=== PATIENT | male | born 1990 | race Caucasian/White ===

== ENCOUNTER → 2016-12-28 | Day surgery (SDC) | payer MEDICAID ==
[~2016-12-28] VITALS: Ht 189.2 cm; Wt 151.0 kg
[~2016-12-28] MED LIST: BACITRACIN ZINC 15GM TUBE TOP ONE; BUPIVACAINE HCL/PF 0.25% (2.5MG/ML) 10ML ONE; CEFAZOLIN SODIUM 1000MG/VIAL ONE; FENTANYL CITRATE/PF 50MCG/ML 2ML VIAL ONE; HYDROMORPHONE HCL/PF 2MG/ML CPJ IV PRN; LACTATED RINGERS 1,000 ML IV SCH; LIDOCAINE HCL 1% 20ML VIAL (Pyxis) INJ ONE; MEPERIDINE HCL/PF 25MG/ML CPJ IV PRN; MIDAZOLAM HCL 5 MG/5 ML VIAL ONE; ONDANSETRON HCL 4MG/2ML VIAL IV PRN; ONDANSETRON HCL 4MG/2ML VIAL ONE; PROPOFOL 200MG/20ML VIAL IV ONE; SODIUM CHLORIDE 0.9% 1,000 ML IV SCH
[2016-12-28 09:35] VITALS: BP 131/73
== END | disposition home or self-care (01) ==
LOC: OR 05:30
PROVIDERS: ATTEND Urology
DX: N47.1 Phimosis (principal); E66.01 Morbid (severe) obesity due to excess calories
CPT/HCPCS: 54164; J0690; J1170; J2250; J2405; J3010; J3490; J7030; J7120; J2704